=== PATIENT | female | born 1995 | race Caucasian/White ===

== ENCOUNTER 2018-07-07 16:49 | Emergency (ER) | payer OTHER, BC ==
[~2018-07-07] VITALS: Ht 170.2 cm; Wt 56.7 kg
== END 2018-07-07 18:27 | disposition home or self-care (01) ==
LOC: ED 16:49
DX: S60.032A Contusion of left middle finger without damage to nail, initial encounter (principal); W22.8XXA Striking against or struck by other objects, initial encounter
CPT/HCPCS: 36415; 84460; 86703; 86707; 86803; 87350; 99283